=== PATIENT | female | born 1940 | race Caucasian/White ===

== ENCOUNTER 2017-02-02 21:02 | Emergency (ER) | payer MEDICAID, MEDICARE, OTHER ==
[~2017-02-02] VITALS: Ht 149.9 cm; Wt 43.1 kg
--- NOTE | 2017-02-02 21:13 | Emergency Room Report ---
History of Present Illness General Chief Complaint: Multiple Trauma/Fall Source: Patient Present Illness HPI Is a 76-year-old female with history of breast cancer without any treatment. She present with a fall and mostly right knee pain. She said she was walking to the bathroom when she tripped. Complaining of swelling to the left side. Also with severe right knee pain. Able to bear weight but hard to walk. No hip pain. No nausea no vomiting. No fever chills. Denies any other complaint. Allergies: Coded Allergies: PENICILLINS (Verified Allergy, Unknown, 02/02/17) Uncoded Allergies: SODIUM THIOPENTAL (Allergy, Unknown, 02/02/17) Patient History Past Medical History: see triage record, old chart reviewed Past Surgical History: other Pertinent Family History: none Social History: Denies: smoking Last Menstrual Period: n/a Now: No Immunizations: other Reviewed Nursing Documentation: PMH: Agreed, PSxH: Agreed Review of Systems Eye: Denies: eye pain, blurred vision ENT: Denies: ear pain, nose congestion, throat swelling Respiratory: Denies: cough, shortness of breath Cardiovascular: Denies: chest pain, palpitations Gastrointestinal: Denies: abdominal pain, diarrhea, nausea, vomiting Musculoskeletal: Reports: joint pain, Denies: back pain Skin: Denies: rash Neurological: Denies: headache, numbness Endocrine: Denies: increased thirst, increased urine Hematologic/Lymphatic: Denies: easy bruising All Other Systems: negative except mentioned in HPI Physical Exam Vital Signs Date Time Temp Pulse Resp B/P (MAP) Pulse Ox O2 Delivery O2 Flow Rate FiO2 02/02/17 21:01 97.9 105 16 166/92 99 Room Air vitals with high blood pressure Sp02 EP Interpretation: reviewed, normal General Appearance: no apparent distress, alert, cachetic Head: normocephalic, other - Small hematoma over left eyebrow. Eyes: bilateral eye PERRL, bilateral eye EOMI ENT: hearing grossly normal, normal pharynx Neck: full range of motion, supple, no meningismus Respiratory: chest non-tender, lungs clear, normal breath sounds Cardiovascular #1: regular rate, rhythm, no murmur Gastrointestinal: normal bowel sounds, non tender, no mass, no organomegaly, no bruit, non-distended Musculoskeletal: back normal, other - No hip tenderness. Diffuse right knee pain. There is arthritic changes but no obvious deformity. No ecchymosis. Psychiatric: mood/affect normal Skin: warm/dry Medical Decision Making Diagnostic Impression: Primary Impression: Fall Qualified Codes: W19.XXXA - Unspecified fall, initial encounter Additional Impressions: Multiple injuries due to trauma Head injury, acute Qualified Codes: S09.90XA - Unspecified injury of head, initial encounter Arthralgia of right knee ER Course This is a 76-year-old female who lives by herself. She has a friend named Javier Dietz who visit to take care of her also. She fell and had head injury. Also with severe right knee and leg pain. She is extremely uncooperative. She refuses practically everything. She has evidence of head injury and out of get a CT scan to rule out any bleed. She is screaming in pain get does not want pain medication. Initially I order morphine but she refused. She also refused the Motrin. She will lay flat to get x-rays of her hip to rule out occult fracture. I see nothing obvious on her knee other than arthritic changes. Because her pain I wanted to get a CT scan also. She is okay to get CT scan of her head and knee but refused CT scan her head. She was worried about radiation from CT scan. Explained to her that radiation from her CTs of her hip and knee is more than her head. Her risk of developing cancer will be until 20-30 years down the line. Because of her pain she cannot lay flat for CT. Pain improved over time but occasionally she gets spasm. She refuses IV. I spent almost an hour and explain things to her to get her to cooperate. I can admit her without any diagnostic workup to justified admission. Her friend Javier also try to convince her to do these diagnostic study. She adamantly refuses. She is competent to make a decision to leave AGAINST MEDICAL ADVICE. Other X-Ray Diagnostic Results Other X-Ray Diagnostic Results : X-Ray ordered: Right knee x-rays # of Views/Limited Vs Complete: 3 View Indication: Pain EP Interpretation: Yes Interpretation: no dislocation, no soft tissue swelling, no fractures Last Vital Signs Date Time Temp Pulse Resp B/P (MAP) Pulse Ox O2 Delivery O2 Flow Rate FiO2 02/02/17 21:01 97.9 105 16 166/92 99 Room Air Status: improved Disposition: AGAINST MEDICAL ADVICE Condition: Stable ANNIE FARIAS M.D. Feb 02, 2017 21:13
[2017-02-02 21:15] VITALS: BP 166/92
[2017-02-02 23:17] VITALS: BP 174/91
[2017-02-02 23:30] VITALS: BP 174/91
--- NOTE | 2017-02-03 12:05 | Diagnostic Imaging Report ---
Indication: Pain 3 views of the right knee were obtained. Findings: Bones are osteopenic. There is a fracture involving the patella. There is a joint effusion. Chondrocalcinosis demonstrated. Impression: Acute fracture of the patella noted. Joint effusion.
== END 2017-02-02 23:25 | disposition left against medical advice (07) ==
LOC: EDBD 21:02 → EMR 21:16
DX: M25.561 Pain in right knee (principal); S09.90XA Unspecified injury of head, initial encounter; Z88.0 Allergy status to penicillin; Z88.8 Allergy status to other drugs, medicaments and biological substances; W01.0XXA Fall on same level from slipping, tripping and stumbling without subsequent striking against object, initial encounter; Y92.002 Bathroom of unspecified non-institutional (private) residence as the place of occurrence of the external cause
CPT/HCPCS: 99283

== ENCOUNTER 2019-06-11 12:22 | Emergency (ER) | payer MEDICARE, OTHER ==
[~2019-06-11] VITALS: Ht 157.5 cm; Wt 45.4 kg
--- NOTE | 2019-06-11 12:50 | NUR ---
ED Nurse Note: Pt walked in from home d/t generalized weakness and inabilty to walk. A+Ox4, denies pain/SOB. Respirations even and unlabored on room air. Vitals stable as documented.
--- NOTE | 2019-06-11 13:05 | NUR ---
ED Nurse Note: Pt deciding on whether she wants to get blood testing done and if she wants to stay at the hospital. ED MD aware.
--- NOTE | 2019-06-11 13:49 | NUR ---
ED Nurse Note: PT IS A/OX4. PT REQUESTED TO TAKE OUT IV AND REFUSED 500ML NACL. NOTIFIED ERMD. RN EDUCATED PT THAT IV ACCESS IS NEEDED IF PT IS STAYING IN THE HOSPITAL AND EXPLAINED TO PT THAT FLUID IS NEED FOR PT'S WEAKNESS. PT STATES THAT SHE WANTS TO STAY BUT REFUSED FLUID AT THIS TIME.
[2019-06-11 13:54] VITALS: BP 136/72
--- NOTE | 2019-06-11 13:59 | Emergency Room Report ---
History of Present Illness General Chief Complaint: Generalized Weakness Source: Patient (Tiffany Botello DO) Present Illness HPI Patient presents with several complaints mainly complaining of general weakness and having difficulty standing and bearing weight Patient denies any vomiting or diarrhea she has been eating a little bit less than usual Patient reports that she is having a difficult time managing herself and getting around denies any recent fall or trauma denies any saddle paresthesia Denies any change in medication Denies any chest pain or shortness of breath COVID-19 risk:Travel to affect: No (Tiffany Botello DO) Allergies: Coded Allergies: PENICILLINS (Verified Allergy, Unknown, 02/02/17) Uncoded Allergies: SODIUM THIOPENTAL (Allergy, Unknown, 02/02/17) Patient History Past Medical History: see triage record Reviewed Nursing Documentation: PMH: Agreed; PSxH: Agreed (Tiffany Botello DO) Nursing Documentation-PMH Past Medical History: No Stated History Hx COPD: No - PNA Hx Cancer: Yes - left breast cx (VitoernestoTiffany GARCIA) Review of Systems All Other Systems: negative except mentioned in HPI (Tiffany Botello DO) Physical Exam Vital Signs Date Time Temp Pulse Resp B/P (MAP) Pulse Ox O2 Delivery O2 Flow Rate FiO2 06/11/19 12:46 97.9 104 16 129/66 (87) 98 Room Air Sp02 EP Interpretation: reviewed, normal General Appearance: no apparent distress, other - Patient is frail however in no acute distress Head: normocephalic, atraumatic Eyes: bilateral eye PERRL, bilateral eye EOMI ENT: hearing grossly normal, normal pharynx, TMs + canals normal, uvula midline Neck: full range of motion, supple, no meningismus, no bony tend Respiratory: lungs clear, normal breath sounds, no rhonchi, no respiratory distress, no retraction, no accessory muscle use Cardiovascular #1: normal peripheral pulses, regular rate, rhythm, no edema, no gallop, no JVD, no murmur Gastrointestinal: normal bowel sounds, non tender, soft, no mass, no organomegaly, non-distended, no guarding, no hernia, no pulsatile mass, no rebound Genitourinary: no CVA tenderness Musculoskeletal: other - Thickened kyphosis no obvious focal deficit Neurologic: motor strength/tone normal, oriented x3, sensory intact, responsive Psychiatric: mood/affect normal Skin: no rash Lymphatic: normal inspection, no adenopathy (Tiffany Botello DO) Procedures Critical Care Time Critical Care Time Total Critical Care Time: 60 min bedside evaluation and treatment excludes procedures (EKG). Reason for critical care: critical hgb, discussion of transfusion, patient refusing antibiotics, psychiatric evaluation in ED, UTI, leukocytosis Possible complications: hypotension, hypertension, NM, shock, arrhythmias, metabolic acidosis, end organ damage, respiratory failure. Interventions: antibiotics, discussion of transfusion and antibiotics, iron, folate, thiamine, psychiatric evaluation, repeat evaluations Course: Patient presented with weakness. Labs reveal leukocytosis and critical anemia. Patient refusing interventions. Discussion with patient need for antibiotics and transfusion. Antibiotics administered. Refused transfusion. Psychiatric evaluation in ED. Confucianist and continued to refuse transfusion. Iron, folate and thiamine ordered. Discussed with pharmacy possibility for Hetastarch. VS remain stable. Discussed with accepting MD. Consultations: nursing staff, psychiatrist, pharmacy, accepting MD Performed by: Dr. Medellin Tolerated well condition = serious (Mark Medellin MD) Medical Decision Making Diagnostic Impression: Primary Impression: Profound anemia Qualified Codes: D64.9 - Anemia, unspecified Additional Impressions: Leukocytosis Qualified Codes: D72.829 - Elevated white blood cell count, unspecified Pulmonary infiltrates UTI (urinary tract infection) Qualified Codes: N39.0 - Urinary tract infection, site not specified ER Course Please see above note. Signed out to me by Dr. Hartley waiting for labs. Patient complaining about generalized weakness. X-ray with old cavitary lesion and increased kc and scarring. EKG reviewed without injury. Called with hgb 4.7. WBC found at 21K. BC and antibiotics ordered. 1445 No signs of shock. Lactate normal. Discussed need for transfusion and antibiotics. Patient refusing. Knows president is Tryoly and 2020. Might need psychiatric evaluation. States h/o anemia in past. (No prior records available.) Denies melena, vomit blood or coffee grounds. Evaluated by Dr. Reich. Competent to refuse transfusion. Patient states Confucianist. Patient has agrees to antibiotics. Calling pharmacy for possible use of Hetastarch. (Not indicated as no signs of shock.) Iron, folate and thiamine ordered. Discussed with Dr. Vi including critical hgb - accepts patient. VS remained stable. Laboratory Tests Test 06/11/19 13:35 06/11/19 14:05 06/11/19 15:05 06/11/19 15:51 Sodium Level 133 MMOL/L (136-145) L Potassium Level 4.7 MMOL/L (3.5-5.1) Chloride Level 98 MMOL/L (98-107) Carbon Dioxide Level 28 MMOL/L (21-32) Anion Gap 7 mmol/L (5-15) Blood Urea Nitrogen 18 mg/dL (7-18) Creatinine 0.9 MG/DL (0.55-1.30) Estimate Glomerular Filtration Rate > 60 mL/min (>60) Glucose Level 110 MG/DL (74-106) H Calcium Level 9.1 MG/DL (8.5-10.1) Total Bilirubin 0.3 MG/DL (0.2-1.0) Aspartate Amino Transferase (AST) 14 U/L (15-37) L Alanine Aminotransferase (ALT) 15 U/L (12-78) Alkaline Phosphatase 80 U/L (46-116) Total Creatine Kinase 45 U/L (26-308) Troponin I 0.039 ng/mL (0.000-0.056) Total Protein 7.2 G/DL (6.4-8.2) Albumin 3.6 G/DL (3.4-5.0) Globulin 3.6 g/dL Albumin/Globulin Ratio 1.0 (1.0-2.7) White Blood Count 21.7 K/UL (4.8-10.8) H Red Blood Count 3.21 M/UL (4.20-5.40) L Hemoglobin 4.7 G/DL (12.0-16.0) *L Hematocrit 17.1 % (37.0-47.0) L Mean Corpuscular Volume 53 FL (80-99) L Mean Corpuscular Hemoglobin 14.7 PG (27.0-31.0) L Mean Corpuscular Hemoglobin Concent 27.7 G/DL (32.0-36.0) L Red Cell Distribution Width 14.5 % (11.6-14.8) Platelet Count 590 K/UL (150-450) H Mean Platelet Volume 7.7 FL (6.5-10.1) Neutrophils (%) (Auto) % (45.0-75.0) Lymphocytes (%) (Auto) % (20.0-45.0) Monocytes (%) (Auto) % (1.0-10.0) Eosinophils (%) (Auto) % (0.0-3.0) Basophils (%) (Auto) % (0.0-2.0) Differential Total Cells Counted 100 Neutrophils % (Manual) 86 % (45-75) H Lymphocytes % (Manual) 9 % (20-45) L Monocytes % (Manual) 4 % (1-10) Eosinophils % (Manual) 1 % (0-3) Basophils % (Manual) 0 % (0-2) Band Neutrophils 0 % (0-8) Platelet Estimate Increased H Platelet Morphology Normal Hypochromasia 3+ Anisocytosis 3+ Microcytosis 3+ Schistocytes 1+ Lactic Acid Level 0.80 mmol/L (0.4-2.0) Urine Color Pale yellow Urine Appearance Slightly cloudy Urine pH 7 (4.5-8.0) Urine Specific [place] 1.005 (1.005-1.035) Urine Protein 1+ (NEGATIVE) H Urine Glucose (UA) Negative (NEGATIVE) Urine Ketones Negative (NEGATIVE) Urine Blood 1+ (NEGATIVE) H Urine Nitrite Negative (NEGATIVE) Urine Bilirubin Negative (NEGATIVE) Urine Urobilinogen Normal MG/DL (0.0-1.0) Urine Leukocyte Esterase 3+ (NEGATIVE) H Urine RBC 5-10 /HPF (0 - 2) H Urine WBC 20-30 /HPF (0 - 2) H Urine Squamous Epithelial Cells Many /LPF (NONE/OCC) H Urine Bacteria Many /HPF (NONE) H (Mark Medellin MD) EKG Diagnostic Results Rate: normal Rhythm: NSR ST Segments: no acute changes (Mark Medellin MD) Rhythm Strip Diag. Results EP Interpretation: yes Rhythm: NSR, no PVC's, no ectopy (Mark Medellin MD) Chest X-Ray Diagnostic Results Chest X-Ray Diagnostic Results : Chest X-Ray Ordered: Yes # of Views/Limited/Complete: 1 View Indication: Other EP Interpretation: Yes Interpretation: no effusion, no pneumothorax, other - Cardiomegaly, possible old cavitary lesion left upper lobe, diffuse scarring Impression: Other Electronically Signed by: Electronically signed by Mark Medellin MD (Mark Medellin MD) Last Vital Signs Date Time Temp Pulse Resp B/P (MAP) Pulse Ox O2 Delivery O2 Flow Rate FiO2 06/11/19 13:54 97.9 16 136/72 98 Room Air 06/11/19 12:46 104 (Tiffany Botello DO) Last Vital Signs Date Time Temp Pulse Resp B/P (MAP) Pulse Ox O2 Delivery O2 Flow Rate FiO2 06/11/19 19:35 98.0 95 21 145/60 96 Room Air Status: improved (Mark Medellin MD) Disposition: XFER SHT-TRM HOSP Condition: Serious Scripts No Active Prescriptions or Reported Meds Referrals: NON PHYSICIAN (PCP) Tiffany Botello DO Jun 11, 2019 13:59 Mark Medellin MD Jun 11, 2019 14:21
[2019-06-11 14:12] LABS: ANION GAP 7 mmol/L (5-15); BLOOD UREA NITROGEN 18 mg/dL (7-18); CALCIUM 9.1 MG/DL (8.5-10.1); CARBON DIOXIDE 28 MMOL/L (21-32); CHLORIDE 98 MMOL/L (98-107); CREATININE 0.9 MG/DL (0.55-1.30); POTASSIUM 4.7 MMOL/L (3.5-5.1); SODIUM 133 MMOL/L (136-145)
[2019-06-11 14:18] LABS: ALANINE AMINOTRANSFERASE 15 U/L (12-78); ALBUMIN 3.6 G/DL (3.4-5.0); ALKALINE PHOSPHATASE 80 U/L (46-116); ASPARTATE AMINO TRANSFERASE 14 U/L (15-37); BILIRUBIN,TOTAL 0.3 MG/DL (0.2-1.0); CREATINE KINASE 45 U/L (26-308)
--- NOTE | 2019-06-11 14:25 | Diagnostic Imaging Report ---
Indication: Dyspnea Comparison: None A single view chest radiograph was obtained. Findings: There is a nodular density in the lateral part of the left upper lobe with associated central lucency suspicious for cavitation. The lungs also demonstrate patchy areas of reticular markings or interstitial disease. Acuity of this is not known and may be related to heart failure or interstitial pneumonitis. The heart is enlarged. The aorta is ectatic. Bones are osteopenic. IMPRESSION: Abnormal nodular peripheral density in the left upper lobe with suggestion of underlying cavitation. Contrast enhanced CT evaluation is recommended. Interstitial lung disease acuity indeterminate. Consider pneumonitis or heart failure.
[2019-06-11 14:39] LABS: HEMATOCRIT 17.1 % (37.0-47.0); MEAN CORPUSCULAR VOLUME 53 FL (80-99); PLATELET COUNT 590 K/UL (150-450); RED BLOOD COUNT 3.21 M/UL (4.20-5.40); RED CELL DISTRIBUTION WIDTH 14.5 % (11.6-14.8); WHITE BLOOD COUNT 21.7 K/UL (4.8-10.8)
--- NOTE | 2019-06-11 14:40 | NUR ---
ED Nurse Note: pt refusing iv fluids and urine sample at this time. ED MD aware.
[2019-06-11 14:42] LABS: HEMOGLOBIN 4.7 G/DL (12.0-16.0)
[2019-06-11] MEDS ORDERED: cefTRIAXone 1 GM in NS 55 ML IVPB ONE (15:00)
--- NOTE | 2019-06-11 15:00 | NUR ---
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
--- NOTE | 2019-06-11 15:10 | NUR ---
ED Nurse Note: Pt agreed to IV fluids and abx
[2019-06-11] MEDS ORDERED: Multivitamin w/Minerals tab ORAL STA (15:59)
[2019-06-11 16:00] VITALS: BP 168/89
[2019-06-11] MEDS ORDERED: Thiamine HCl 100 MG in D5W 55 ML IVPB SCH (16:00)
[2019-06-11 16:08] LABS: APPEARANCE,URINE SLIGHTLY CLOUDY; BILIRUBIN, URINE NEGATIVE (NEGATIVE); COLOR,URINE PALE YELLOW; GLUCOSE, URINE (UA) NEGATIVE (NEGATIVE); KETONES,URINE NEGATIVE (NEGATIVE); LEUKOCYTE ESTERASE ,URINE 3+ (NEGATIVE); NITRITE,URINE NEGATIVE (NEGATIVE); PH,URINE 7 (4.5-8.0); PROTEIN,URINE 1+ (NEGATIVE); UROBILINOGEN,URINE NORMAL MG/DL (0.0-1.0)
[2019-06-11 18:00] VITALS: BP 162/87
--- NOTE | 2019-06-11 18:02 | NUR ---
ED Nurse Note: Report given to OFE Lafleur @ [facility]
--- NOTE | 2019-06-11 19:02 | NUR ---
HAND-OFF: Report given to OFE Fuller. Pt in stable condition; plan of care endorsed.
--- NOTE | 2019-06-11 19:03 | NUR ---
ED Nurse Note: Pt awaiting transport to [facility]
--- NOTE | 2019-06-11 19:04 | NUR ---
ED Nurse Note: Received report from Madalyn THAKUR. Pt alert and oriented, verbally responsive. Not in any distress. Awaiting transport. Will cont to monitor.
[2019-06-11 19:35] VITALS: BP 145/60
--- NOTE | 2019-06-11 19:35 | NUR ---
ED Nurse Note: Pt cleared by MARIA LUISA to be transferred to [facility]. Report given to Miquel THAKUR. Pt was picked by 2 EMT via emani. Pt alert and oriented, verbally responsive. Ambulatory with walker. Not in any distress. No SOB. Sinus rhythm. IV line on right AC 22g patent and intact. No skin issues. No isolation. All belongings was given to the patient.
--- NOTE | 2019-06-11 20:15 | Consultation ---
DATE OF CONSULTATION: 06/11/2019 CONSULTING PHYSICIAN: Tyshawn Reich M.D. HISTORY OF PRESENT ILLNESS: This is a 78-year-old female who stated that she is Scientology, presented to the hospital due to difficulty walking. The patient was found to be severely anemic. The patient is also needing antibiotics for her UTI. The patient is reluctant for blood transfusion as well as antibiotic. The patient then agreed to antibiotic; however, stated that she is Scientology since age 20, she is refusing to be transfused. The patient is able to understand risks and benefits of transfusion. The patient is able to understand, process, and communicate rationally. PAST PSYCHIATRY HISTORY: Significant for depression and anxiety. PAST MEDICAL HISTORY: As above. ALLERGIES: No known drug allergies. SUBSTANCE USE HISTORY: Not significant for alcohol or drugs. MENTAL STATUS EXAMINATION: The patient is alert and oriented to self, place, situation, and date. She is cachectic and ill-appearing, disheveled, unkempt . Her mood is neutral. Affect is full range. Thought process is concrete. Thought content, no suicidal or homicidal ideation. Cognition is intact. Insight and judgment is limited. ASSESSMENT: Lane I Anxiety disorder. Lane II Deferred. Lane III Anemia. Lane IV Low. Lane V 60. PLAN: 1. The patient has capacity to make decision. She is refusing blood transfusions due to her buddhism belief. 2. We will continue to follow and readjust the patient's medications and encourage her to take medications. Tyshawn Reich M.D. DR: Faith JOB#: [id number] CC:
== END 2019-06-11 19:35 | disposition other institution (70) ==
LOC: EMR 12:50
DX: D64.9 Anemia, unspecified (principal); D72.829 Elevated white blood cell count, unspecified; R91.8 Other nonspecific abnormal finding of lung field; N39.0 Urinary tract infection, site not specified; Z85.3 Personal history of malignant neoplasm of breast; Z88.0 Allergy status to penicillin; Z88.8 Allergy status to other drugs, medicaments and biological substances
CPT/HCPCS: 36415; 71045; 80053; 81003; 82550; 83605; 84484; 85007; 85025; 86900; 86901; 87040; 87086; 87181; 93005; 96365; 96366; 96367; 99291; J0696; J1756; J1956; J7040

== ENCOUNTER 2019-12-07 12:38 | Emergency (ER) | payer OTHER ==
[~2019-12-07] VITALS: Ht 154.9 cm; Wt 37.2 kg
--- NOTE | 2019-12-07 12:53 | NUR ---
ED Nurse Note: Pt ambulated to ed c/o "low blood level and SOB chloe have this before so i know what it feels like"
[2019-12-07 12:54] VITALS: BP 164/74
--- NOTE | 2019-12-07 13:00 | NUR ---
ED Nurse Note: Pt report that she is a [employer]. pt wishes to speak to doctor before palcing IV. PT wants iron drip. pt denies blood in stool, refuses occult test
--- NOTE | 2019-12-07 13:15 | NUR ---
ED Nurse Note: Pt spoke with MARIA LUISA, per MARIA LUISA use butterfly to draw blood
--- NOTE | 2019-12-07 13:17 | NUR ---
ED Nurse Note: blood specimen collected via butterfly needle per ERMD order and sent to lab
--- NOTE | 2019-12-07 13:20 | NUR ---
ED Nurse Note: all medications on hold until lab results return; per ermd.
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
[2019-12-07 13:37] LABS: BASOPHILS % (AUTO) 1.2 % (0.0-2.0); EOSINOPHILS % (AUTO) 1.5 % (0.0-3.0); HEMATOCRIT 43.8 % (37.0-47.0); HEMOGLOBIN 14.3 G/DL (12.0-16.0); MEAN CORPUSCULAR VOLUME 93 FL (80-99); MONOCYTES % (AUTO) 4.4 % (1.0-10.0); PLATELET COUNT 488 K/UL (150-450); RED BLOOD COUNT 4.71 M/UL (4.20-5.40); WHITE BLOOD COUNT 15.1 K/UL (4.8-10.8)
--- NOTE | 2019-12-07 13:39 | NUR ---
ED Nurse Note: Pt refuses covid swab ERMD made aware
[2019-12-07 13:50] LABS: ANION GAP 9 mmol/L (5-15); BLOOD UREA NITROGEN 22 mg/dL (7-18); CALCIUM 9.5 MG/DL (8.5-10.1); CARBON DIOXIDE 27 MMOL/L (21-32); CHLORIDE 103 MMOL/L (98-107); CREATININE 0.9 MG/DL (0.55-1.30); SODIUM 138 MMOL/L (136-145)
[2019-12-07 13:57] LABS: ALANINE AMINOTRANSFERASE 17 U/L (12-78); ALBUMIN 3.6 G/DL (3.4-5.0); ALBUMIN/GLOBULIN RATIO 0.8 (1.0-2.7); ALKALINE PHOSPHATASE 79 U/L (46-116); ASPARTATE AMINO TRANSFERASE 21 U/L (15-37); BILIRUBIN,TOTAL 0.3 MG/DL (0.2-1.0)
--- NOTE | 2019-12-07 14:22 | NUR ---
ED Nurse Note: Bedside commode placed at bedside
--- NOTE | 2019-12-07 14:27 | NUR ---
ED Nurse Note: xray at bedside
[2019-12-07] MEDS: Azithromycin 250mg tab ORAL ONE ×2 (14:33→14:35)
[2019-12-07 14:38] VITALS: BP 150/86
--- NOTE | 2019-12-07 14:40 | NUR ---
ED Nurse Note: pt refusing azithormycin order; informed ERMD and is aware
[2019-12-07 15:04] LABS: APPEARANCE,URINE CLOUDY; BILIRUBIN, URINE NEGATIVE (NEGATIVE); COLOR,URINE PALE YELLOW; GLUCOSE, URINE (UA) NEGATIVE (NEGATIVE); KETONES,URINE NEGATIVE (NEGATIVE); LEUKOCYTE ESTERASE ,URINE 3+ (NEGATIVE); NITRITE,URINE POSITIVE (NEGATIVE); PH,URINE 6 (4.5-8.0); PROTEIN,URINE NEGATIVE (NEGATIVE); UROBILINOGEN,URINE NORMAL MG/DL (0.0-1.0)
[2019-12-07] MEDS ORDERED: cefTRIAXone 1 GM in NS 55 ML IVPB ONE (15:15)
--- NOTE | 2019-12-07 15:36 | NUR ---
ED Nurse Note: Infomred ERMD that pt refused macrobid order; ERMD aware
--- NOTE | 2019-12-07 16:12 | NUR ---
ED Nurse Note: [facility] at bedside, pt refusing transfer, CRN, and registration speaking to pt.
--- NOTE | 2019-12-07 16:31 | NUR ---
ED Nurse Note: complex case manager day at bedside.
--- NOTE | 2019-12-07 16:33 | Diagnostic Imaging Report ---
Indication: Cough Technique: One view of the chest Comparison: 06/11/2019 Findings: Left peripheral lung mass appears smaller than on the prior study, measuring 2.6 x 3 cm, previously 4.9 x 3.3 cm. There is a demonstrated central cavity is no longer evident. Chronic appearing interstitial disease is again demonstrated bilaterally. No focal airspace consolidation. The heart size is normal. The pleural spaces are clear. The bones are osteoporotic Impression: Interim decrease size of previously demonstrated left peripheral lung mass. This may reflect response of neoplasm to therapy-correlate with clinical history. No definite acute process otherwise
--- NOTE | 2019-12-07 16:44 | NUR ---
COMMERCIAL ATTORNEY NOTE Pt agreed to be transferred to [facility] [place]. [facility] at bedside.
--- NOTE | 2019-12-07 16:46 | NUR ---
ED Nurse Note: pt refuses, clonidine order. pt sbp 186. called REMIGIO, tank house operator helper at [facility] to inform him of pt endorsement and situation. per Remigio he will speak to the CNO and call us back.
[2019-12-07 16:47] VITALS: BP 186/86
--- NOTE | 2019-12-07 16:54 | NUR ---
ED Nurse Note: Pt left with [facility] [address] with all belongings. pt sbp went down to 170. Pt has no IV site.
[2019-12-07 16:55] VITALS: BP 170/83
[2019-12-07 20:59] LABS: IRON 46 ug/dL (50-175)
[2019-12-08 08:12] LABS: % IRON SATURATION 15 % (15-50); TOTAL IRON BINDING CAPACITY 303 ug/dL (250-450)
--- NOTE | 2019-12-24 14:27 | Cardiology Report ---
APPROVED REPORT EKG Measurement Heart [id number] <Conclusion> Sinus rhythm with premature atrial complexes Left axis deviation Pulmonary disease pattern Left ventricular hypertrophy with repolarization abnormality Cannot rule out Septal infarct, age undetermined Abnormal ECG
== END 2019-12-07 16:56 | disposition short-term general hospital (02) ==
LOC: EMR 13:23 → EDBEDREQ 14:12 → EMR 16:56
DX: R53.1 Weakness (principal); E86.0 Dehydration; R06.02 Shortness of breath; R60.0 Localized edema; R94.31 Abnormal electrocardiogram [ECG] [EKG]; Z59.0 Homelessness; D72.829 Elevated white blood cell count, unspecified; J44.9 Chronic obstructive pulmonary disease, unspecified; Z85.3 Personal history of malignant neoplasm of breast; Z88.0 Allergy status to penicillin
CPT/HCPCS: 36415; 71045; 80053; 81003; 83540; 83550; 83690; 84484; 85025; 85610; 85730; 86850; 86900; 86901; 87086; 87181; 93005; 99284